=== PATIENT | male | born 1950 | race Caucasian/White ===

== ENCOUNTER → 2018-09-13 | Outpatient (CLI) | payer MEDICARE ==
[~2018-09-13] MED LIST: BABY81CH; COZA50TA18; FLOM0.4C39; GLUC500T; LIPI20TA; OMACOR; PROT1TAB2; THERGRAN; ZOLO50TA
--- NOTE | 2018-09-14 09:59 | REP ---
MRI LEFT SHOULDER: TECHNIQUE: Axial T2 fat sat, coronal oblique T1, T2 fat sat, post arthrogram axial T1 fat sat, proton density, coronal oblique T1 fat sat, T2 sat, sagittal oblique T2 fat sat, ABER T1 fat sat. There is a full thickness tear at the anterior leading edge of the supraspinatus tendon. Other rotator cuff tendons appear intact. There are minor hypertrophic degenerative changes of the acromioclavicular joint with mild fluid in the joint. There is mild subacromial spurring. The acromion is type 2. Biceps tendon is within the bicipital groove with a very small amount of surrounding fluid. There is no Hill-Sachs deformity. The deltoid muscle demonstrates no abnormal signal. Biceps labral complex appears intact. I do not see evidence of a labral tear. A few tiny subchondral cysts are seen in the superolateral humeral head. There is no bone marrow edema or occult fracture. A small amount of fluid is seen in the subacromial subdeltoid bursae. No paralabral cyst is seen. There is mild chondromalacia at the glenohumeral joint. IMPRESSION: Full thickness partial tear anterior leading edge of supraspinatus tendon. Otherwise rotator cuff tendons are intact. No definite labral tear is seen. Very mild hypertrophic degenerative changes of the acromioclavicular joint with mild subacromial spurring and a type 2 acromion. Mild fluid in the subacromial subdeltoid bursae. Electronically Signed by Derek Kumar MD 09/16/2018 11:43 A
== END ==
LOC: M RAD 15:10
PROVIDERS: ATTEND Orthopaedic Surgery
DX: M25.512 Pain in left shoulder (principal)

== ENCOUNTER 2019-12-23 14:55 | Emergency (ER) | payer MEDICARE ==
[~2019-12-23] VITALS: Ht 188 cm; Wt 95.5 kg
[2019-12-23] MEDS ORDERED: OMEP-218 (15:28)
[2019-12-23] MEDS ORDERED: METF10004 (15:28)
[2019-12-23] MEDS ORDERED: LISI-542 (15:28)
[2019-12-23] MEDS ORDERED: SERT-138 (15:28)
[2019-12-23] MEDS ORDERED: TAMS1CAP17 (15:28)
[2019-12-23] MEDS ORDERED: ATOR1TAB19 (15:28)
[2019-12-23] MEDS ORDERED: NS 1,000 ML IV SCH (16:19)
[2019-12-23 17:05] LABS: BASO # 0.1 10^3/uL (0.0-0.2); BASO % 0.5 % (0.0-1.0); EOS # 0.1 10^3/uL (0.0-0.5); EOS % 0.5 % (0.0-3.0); HEMATOCRIT 36.9 % (42.0-52.0); HEMOGLOBIN 11.4 g/dl (13.5-17.5); LYMPH # 2.1 10^3/uL (1.5-5.0); LYMPH % 12.5 % (24.0-44.0); MEAN CORPUSCULAR HEMOGLOBIN 25.9 pg (27.0-33.0); MEAN CORPUSCULAR HGB CONC 30.9 g/dl (32.0-36.5); MEAN CORPUSCULAR VOLUME 83.7 fl (80.0-96.0); MONO # 1.8 10^3/uL (0.0-0.8); MONO % 10.6 % (0.0-5.0); NEUTROPHILS # 12.9 10^3/uL (1.5-8.5); NEUTROPHILS % 75.5 % (36.0-66.0); PLATELET COUNT, AUTOMATED 574 10^3/uL (150-450); RED BLOOD COUNT 4.41 10^6/uL (4.30-6.10)
--- NOTE | 2019-12-23 17:07 | REPVR ---
PROCEDURE INFORMATION: Exam: CT Head Without Contrast Exam date and time: 12/23/2019 4:46 PM Age: 69 years old Clinical indication: Altered mental status/memory loss TECHNIQUE: Imaging protocol: Computed tomography of the head without contrast. Radiation optimization: All CT scans at this facility use at least one of these dose optimization techniques: automated exposure control; mA and/or kV adjustment per patient size (includes targeted exams where dose is matched to clinical indication); or iterative reconstruction. COMPARISON: CT Head without contrast 07/30/2014 12:49 PM FINDINGS: Brain: No acute intracerebral abnormality or injury. No acute infarct or intracerebral bleed. Mild cerebellar atrophy is present, which could be secondary to Dilantin medication or alcohol abuse. Mild patchy periventricular leukomalacia is additionally present in both cerebral hemispheres, consistent most likely with chronic underlying small vessel / microvascular ischemic disease. [place] Stroke Program Early CT Score (ASPECTS score) = 10. Cerebral ventricles: No ventriculomegaly. Bones/joints: Unremarkable. No acute fracture. Paranasal sinuses: Visualized sinuses are unremarkable. No fluid levels. Mastoid air cells: Visualized mastoid air cells are well aerated. Soft tissues: Unremarkable. IMPRESSION: 1. No acute intracerebral abnormality or injury. No acute infarct or intracerebral bleed. 2. Mild cerebellar atrophy is present, which could be secondary to Dilantin medication or alcohol abuse. Mild patchy periventricular leukomalacia is additionally present in both cerebral hemispheres, consistent most likely with chronic underlying small vessel / microvascular ischemic disease. 3. [place] Stroke Program Early CT Score (ASPECTS score) = 10. Electronically signed by: Kaden Marrero On 12/23/2019 17:07:17 PM
[2019-12-23 17:24] LABS: AMPHETAMINES LEVEL URINE NEGATIVE (NEGATIVE); BARBITURATES URINE NEGATIVE (NEGATIVE); BENZODIAZEPINES URINE NEGATIVE (NEGATIVE); CANNABINOIDS URINE NEGATIVE (NEGATIVE); COCAINE METABOLITE URINE NEGATIVE (NEGATIVE); METHADONE URINE NEGATIVE (NEGATIVE); OPIATES URINE NEGATIVE (NEGATIVE); PHENCYCLIDINE URINE NEGATIVE (NEGATIVE)
[2019-12-23 17:36] LABS: ACETAMINOPHEN LEVEL < 2.0 UG/ML (10.0-30.0); ALBUMIN 3.4 GM/DL (3.2-5.2); ALT/SGPT 13 U/L (12-78); BILIRUBIN,DIRECT 0.2 MG/DL (0.0-0.2); BILIRUBIN,TOTAL 0.5 MG/DL (0.2-1.0); BLOOD UREA NITROGEN 25 MG/DL (7-18); CALCIUM LEVEL 9.2 MG/DL (8.8-10.2); CARBON DIOXIDE LEVEL 25 MEQ/L (21-32); CHLORIDE LEVEL 108 MEQ/L (98-107); CK-MB VALUE MASS 1.4 NG/ML (<3.6); CPK CREATINE PHOSPHOKINASE 64 U/L (39-308); ETHYL ALCOHOL (ETHANOL) < 0.003 % (0.000-0.010); GLOMERULAR FILTRATION RATE > 60.0 (>42); GLUCOSE, FASTING 123 MG/DL (70-100); MB/CK RELATIVE INDEX 2.19 (< OR =4); POTASSIUM SERUM 4.2 MEQ/L (3.5-5.1); SALICYLATE LEVEL < 1.7 MG/DL (5.0-30.0); SODIUM LEVEL 141 MEQ/L (136-145); TOTAL PROTEIN 7.6 GM/DL (6.4-8.2); TROPONIN I < 0.02 NG/ML (< 0.10)
[2019-12-23] MEDS ORDERED: LevoFLOXacin IV 500 MG in IV 1 EA IV ONE (17:45)
[2019-12-23] MEDS ORDERED: LEVO500T3 PO (19:46)
[2019-12-23 20:45] VITALS: BP 119/79
--- NOTE | 2019-12-23 21:24 | ECGEPIP ---
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
--- NOTE | 2019-12-25 06:33 | REP ---
INDICATION: Altered Mental Status COMPARISON: None. TECHNIQUE: Internal rotation, external rotation, and Y view. FINDINGS: Age-related osteopenia and moderate arthritic changes including cortical irregularity and spurring at the acromioclavicular joint, decrease subacromial space, as well as cortical irregularity and spurring involving the humeral head. There is no evidence for acute fracture or dislocation. Prior tendinous repair noted. IMPRESSION: Osteopenia and arthritic degenerative changes. Evidence for prior surgery. No acute fracture or dislocation. <Electronically signed by Irvin Gaytan > 12/25/19 [id number]
--- NOTE | 2019-12-25 06:35 | REP ---
INDICATION: Altered Mental Status COMPARISON: 02/08/2009 TECHNIQUE: Portable AP view of the chest FINDINGS: Mediastinum and cardiac silhouette are within normal limits and stable. Lung penaloza demonstrate diffuse chronic interstitial changes. No acute consolidation, effusion, or pneumothorax. Old healed right rib fractures again noted. IMPRESSION: Chronic stable changes. No acute cardiopulmonary process appreciated. <Electronically signed by Irvin Gaytan > 12/25/19 0613
--- NOTE | 2019-12-25 06:36 | REP ---
INDICATION: Altered Mental Status COMPARISON: None. TECHNIQUE: AP, lateral, bilateral oblique views right wrist. FINDINGS: Osteopenia and moderate/advanced osteoarthritic degenerative changes are appreciated. Findings include scattered subchondral cystic changes, periarticular irregularity, joint space narrowing, and small amounts of chondrocalcinosis. No obvious acute fracture or dislocation. IMPRESSION: Osteopenia and moderate/advanced osteoarthritic degenerative changes. No obvious acute fracture identified. <Electronically signed by Irvin Gaytan > 12/25/19 0612
== END 2019-12-23 20:45 | disposition home or self-care (01) ==
LOC: EDBD 14:55 → M ED 14:55
DX: S40.011A Contusion of right shoulder, initial encounter (principal); Y92.009 Unspecified place in unspecified non-institutional (private) residence as the place of occurrence of the external cause; Y93.9 Activity, unspecified; Y99.9 Unspecified external cause status; W18.39XA Other fall on same level, initial encounter; R00.0 Tachycardia, unspecified; Z79.82 Long term (current) use of aspirin; Z79.899 Other long term (current) drug therapy; Z79.84 Long term (current) use of oral hypoglycemic drugs
CPT/HCPCS: 70450; 71045; 73030; 73110; 80048; 80076; 80307; 81001; 82140; 82550; 82553; 83605; 84443; 84484; 85025; 87088; 87186; 93005; 93041; 94760; 96361; 96374; 99285; G0480; J1956

== ENCOUNTER 2020-01-29 15:40 | Emergency (ER) | payer MEDICARE ==
[~2020-01-29] VITALS: Ht 185.4 cm; Wt 104.5 kg
[~2020-01-29 15:40] MED LIST changes: +ATOR1TAB19; +LEVO500T3 PO; +LISI-542; +METF10004; +OMEP-218; +SERT-138; +TAMS1CAP17
[2020-01-29] MEDS ORDERED: DAILTAB51 PO (16:16)
[2020-01-29 16:32] LABS: BASO # 0.1 10^3/uL (0.0-0.2); BASO % 0.8 % (0.0-1.0); EOS # 0.1 10^3/uL (0.0-0.5); HEMATOCRIT 35.2 % (42.0-52.0); HEMOGLOBIN 11.2 g/dl (13.5-17.5); LYMPH # 3.3 10^3/uL (1.5-5.0); LYMPH % 31.2 % (24.0-44.0); MEAN CORPUSCULAR HEMOGLOBIN 26.2 pg (27.0-33.0); MEAN CORPUSCULAR HGB CONC 31.8 g/dl (32.0-36.5); MEAN CORPUSCULAR VOLUME 82.2 fl (80.0-96.0); MONO # 1.1 10^3/uL (0.0-0.8); MONO % 10.7 % (0.0-5.0); NEUTROPHILS # 5.9 10^3/uL (1.5-8.5); PLATELET COUNT, AUTOMATED 624 10^3/uL (150-450); RED BLOOD COUNT 4.28 10^6/uL (4.30-6.10); WHITE BLOOD COUNT 10.5 10^3/uL (4.0-10.0)
[2020-01-29 17:04] LABS: ALBUMIN 3.4 GM/DL (3.2-5.2); ALT/SGPT 15 U/L (12-78); BILIRUBIN,DIRECT 0.2 MG/DL (0.0-0.2); BILIRUBIN,TOTAL 0.6 MG/DL (0.2-1.0); CK-MB VALUE MASS 1.5 NG/ML (<3.6); CPK CREATINE PHOSPHOKINASE 57 U/L (39-308); MB/CK RELATIVE INDEX 2.63 (< OR =4); TOTAL PROTEIN 7.6 GM/DL (6.4-8.2); TROPONIN I < 0.02 NG/ML (< 0.10)
[2020-01-29] MEDS ORDERED: NS 1,000 ML IV ONE (17:15)
[2020-01-29] MEDS ORDERED: ACETAMINOPHEN TAB 650MG DOSE (2X325MG) PO ONE (17:15)
--- NOTE | 2020-01-29 17:21 | REPVR ---
PROCEDURE INFORMATION: Exam: CT Cervical Spine Without Contrast Exam date and time: 01/29/2020 5:08 PM Age: 69 years old Clinical indication: Injury or trauma; Fall; Blunt trauma TECHNIQUE: Imaging protocol: Computed tomography images of the cervical spine without contrast. Radiation optimization: All CT scans at this facility use at least one of these dose optimization techniques: automated exposure control; mA and/or kV adjustment per patient size (includes targeted exams where dose is matched to clinical indication); or iterative reconstruction. COMPARISON: CT Spine,cervical w/o contrast 05/20/2014 11:49 AM FINDINGS: Bones/joints: No acute fracture. Normal alignment. Discs/Spinal canal/Neural foramina: Multilevel degenerative disc disease. There is multilevel uncovertebral and facet hypertrophy with neural foramina narrowing. Lungs: Lung apices are normal. Soft tissues: Unremarkable. IMPRESSION: No acute abnormality. Electronically signed by: Jamar Sinclair On 01/29/2020 17:21:32 PM
--- NOTE | 2020-01-29 17:26 | REPVR ---
PROCEDURE INFORMATION: Exam: CT Head Without Contrast Exam date and time: 01/29/2020 5:08 PM Age: 69 years old Clinical indication: Injury or trauma; Fall; Blunt trauma (contusions or hematomas) TECHNIQUE: Imaging protocol: Computed tomography of the head without contrast. Radiation optimization: All CT scans at this facility use at least one of these dose optimization techniques: automated exposure control; mA and/or kV adjustment per patient size (includes targeted exams where dose is matched to clinical indication); or iterative reconstruction. Other technique: STROKE PROTOCOL was implemented. COMPARISON: CT Head without contrast 12/23/2019 4:40 PM FINDINGS: Brain: Right hemispheric acute subdural hemorrhage extending into bilateral tentorial leaflets and interhemispheric fissure anteriorly and posteriorly. The acute subdural hemorrhage measures 1.5 cm at its maximal thickness. There is a 8 mm leftward midline shift. Cerebral ventricles: No ventriculomegaly. Bones/joints: Unremarkable. No acute fracture. Paranasal sinuses: Visualized sinuses are unremarkable. No fluid levels. Mastoid air cells: Visualized mastoid air cells are well aerated. Soft tissues: Unremarkable. IMPRESSION: Right hemispheric acute subdural hemorrhage extending into bilateral tentorial leaflets and interhemispheric fissure. It measures 1.5 cm at its maximal thickness with a 8 mm midline leftward shift. ASSESSMENT: ASPECTS ([place] Stroke Program Early CT Score) is 10. Electronically signed by: Jamar Sinclair On 01/29/2020 17:27:00 PM
[2020-01-29] MEDS ORDERED: LABETALOL 100MG/20ML VIAL IV STA (17:39)
[2020-01-29 17:42] LABS: PARTIAL THROMBOPLASTIN TIME 31.5 SECONDS (24.2-38.5)
[2020-01-29 17:46] LABS: INR 1.01; PROTHROMBIN TIME 13.5 SECONDS (12.5-14.3)
[2020-01-29] MEDS ORDERED: DEXTROSE 50% 50 ML SYRINGE IV STA (17:55)
[2020-01-29 18:01] VITALS: BP 147/75
[2020-01-29 18:07] LABS: BLOOD UREA NITROGEN 17 MG/DL (7-18); CALCIUM LEVEL 9.5 MG/DL (8.8-10.2); CARBON DIOXIDE LEVEL 23 MEQ/L (21-32); CHLORIDE LEVEL 103 MEQ/L (98-107); CREATININE FOR GFR 0.72 MG/DL (0.70-1.30); GLOMERULAR FILTRATION RATE > 60.0 (>42); GLUCOSE, FASTING 71 MG/DL (70-100); POTASSIUM SERUM 4.1 MEQ/L (3.5-5.1); SODIUM LEVEL 136 MEQ/L (136-145)
[2020-01-29 18:08] LABS: RSV AMPLIFICATION NEGATIVE (NEGATIVE)
[2020-01-29 19:16] VITALS: BP 154/95
--- NOTE | 2020-01-30 07:42 | ECGEPIP ---
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
== END 2020-01-29 19:27 | disposition short-term general hospital (02) ==
LOC: M ED 15:40
DX: S06.5X0A Traumatic subdural hemorrhage without loss of consciousness, initial encounter (principal); W01.0XXA Fall on same level from slipping, tripping and stumbling without subsequent striking against object, initial encounter; Y92.9 Unspecified place or not applicable; Y93.9 Activity, unspecified; Y99.9 Unspecified external cause status; E11.9 Type 2 diabetes mellitus without complications; I10 Essential (primary) hypertension; K21.9 Gastro-esophageal reflux disease without esophagitis; Z79.82 Long term (current) use of aspirin; Z79.84 Long term (current) use of oral hypoglycemic drugs; Z79.899 Other long term (current) drug therapy